=== PATIENT | female | born 1990 | race African-American/Black ===

== ENCOUNTER 2021-02-22 13:06 | Inpatient (IN) | payer OTHER ==
[~2021-02-22] VITALS: Ht 152.4 cm; Wt 92.5 kg
[~2021-02-22 13:06] MED LIST: IRON325 PO; KEFLEX500 M1 PO; LOPERAMIDE 2 MG2 M1 PO; TRINATE TABLET1 TAB PO
[2021-02-22 13:47] VITALS: BP 129/66
[2021-02-22 14:18] LABS: URINE BILIRUBIN NEGATIVE (Negative); URINE BLOOD NEGATIVE (Negative); URINE CLARITY CLEAR; URINE COLOR YELLOW; URINE GLUCOSE-RANDOM* NEGATIVE (Negative); URINE KETONES NEGATIVE (Negative); URINE LEUKOCYTES-REFLEX NEGATIVE (Negative); URINE NITRITE-REFLEX NEGATIVE (Negative); URINE PROTEIN (DIPSTICK) NEGATIVE (Negative); URINE UROBILINOGEN 0.2 E.U./dl (0.2-1.0)
[2021-02-22 15:19] LABS: HEMATOCRIT 27.7 % (37.0-47.0); HEMOGLOBIN 8.4 gm/dL (12.0-15.0); MCH 20.6 pg (26.0-34.0); MCHC 30.3 g/dL (28.0-37.0); RBC 4.07 mil/uL (4.20-5.00); RDW 17.6 % (10.5-14.5); WBC 8.2 thou/uL (4.0-11.0)
[2021-02-22 15:57] LABS: ALBUMIN 3.7 g/dL (3.4-5.0); CALCIUM 8.7 mg/dL (8.5-10.1); CREATININE 0.6 mg/dL (0.6-1.0); TOTAL BILIRUBIN 0.7 mg/dL (0.2-1.0); TOTAL PROTEIN 8.1 g/dL (6.4-8.2)
[2021-02-22 18:39] VITALS: BP 104/68
--- NOTE | 2021-02-23 04:04 | NUR ---
RECEIVED CARE OF THIS PATIENT AT 1900. PATIENT ARRIVED FROM ED AT 1840 VIA CART ACCOMPANIED BY ED PERSONEL. PATIENT ALERT AND ORIENTED X4. UP AD JAMEL. DENIES PAIN AND N/V. IV IN LAC PATENT WITH FLUIDS INFUSING.
[2021-02-23 06:46] LABS: HEMATOCRIT 24.3 % (37.0-47.0); HEMOGLOBIN 7.2 gm/dL (12.0-15.0); MCH 20.5 pg (26.0-34.0); MCHC 29.7 g/dL (28.0-37.0); MCV 68.9 fL (80.0-100.0); PLATELET COUNT 209 thou/uL (150-400); RBC 3.53 mil/uL (4.20-5.00); RDW 17.8 % (10.5-14.5); WBC 4.4 thou/uL (4.0-11.0)
[2021-02-23 07:15] LABS: CALCIUM 7.7 mg/dL (8.5-10.1); CREATININE 0.6 mg/dL (0.6-1.0); POTASSIUM 3.2 mmol/L (3.5-5.1)
[2021-02-23 07:16] LABS: MAGNESIUM 1.9 mg/dL (1.8-2.4)
[2021-02-23 07:25] VITALS: BP 90/51
[2021-02-23 08:36] LABS: ABSOLUTE NEUTROPHILS 3.5 thou/uL (1.4-8.2)
[2021-02-23 08:37] LABS: ANISOCYTOSIS 1+; MICROCYTES 2+
[2021-02-23 08:38] LABS: HYPOCHROMASIA 3+; PLATELET ESTIMATE NORMAL; POIKILOCYTOSIS 1+; POLYCHROMASIA 1+
[2021-02-23 09:00] VITALS: BP 103/58
[2021-02-23 09:01] LABS: FOLIC ACID 10.2 ng/mL (8.6-58.9)
[2021-02-23 09:13] LABS: % SATURATION 6 % (20-39); IRON 24 ug/dL (50-170); TIBC 384 ug/dL (250-450)
--- NOTE | 2021-02-23 09:59 | NUR ---
ASSUMED PT CARE THIS AM. PT IS ALERT & ORIENTED X4. PT HAS IV SITE ON RFA RUNNING NS @150ML/HR. PT IS ON ROOM AIR. INFORMED HOSPITALIST PT C/O OF CHEST PAIN BUT NOT RADIATING AND NO SOB. PLACED EKG AND INFORMED TELE IS NSR AND RECHECK VS. ORDERED EKG AND TROPONIN PER DR PETERSEN. GIVEN GI COCKTAILS THIS AM PER DR HAGER. WILL CONTINUE TO MONITOR PT. FOLLOW POC.
--- NOTE | 2021-02-23 12:19 | EKG ---
[address] [address] ELECTROCARDIOGRAM REPORT Name: SKINNY ROSENTHAL Room #: 434-P [facility] IN M.R.#: [id number] Admission: 02/22/21 Attend Phys: Bakari Kent MD Discharge: Date of : 86 Report #: [id number] [facility] Test Date: 2021-02-23 Test Time: 09:31:34 Pat Name: SKINNY ROSENTHAL Department: Room: 434 P Gender: F Quantitative Research Analyst: COLETTE : 1990 Requested By: Bakari Kent Order Number: [id number] : Domenico Mayers Measurements Intervals Mcleod Rate: 83 P: 56 ME: 168 QRS: 6 QRSD: 104 T: 30 QT: 376 QTc: 442 Interpretive Statements Sinus rhythm Borderline T abnormalities, anterior leads No previous ECG available for comparison Electronically Signed On 02-23-2021 12:19:10 [employer] WORK[employer] by Domenico Mayers [email or web address] <ELECTRONICALLY SIGNED> By: Domenico Mayers MD, [facility] 02/23/21 1219 0931 0 Domenico Mayers MD, FACC /EPI
[2021-02-23 15:27] VITALS: BP 95/63
[2021-02-23 19:25] VITALS: BP 111/65
--- NOTE | 2021-02-23 23:01 | NUR ---
ASSUMED PT CARE AT 1900.PT WAS OBSERVED LYING ON HER BED WATCHING TV AT SHIFT CHANGE.PT DENIED PAIN/N/V.PT REQUESTED FOR HER DIET TO BE ADVANCED,RUBBER TURNER ON DUTY NOTIFIED ,ORDER NOTED AND CARRIED.PT WAS ABLE TO EAT A SANDWICH AND KEPT IT DOWN WITHOUT C/O PAIN.PT RESTING QUIETLY ON HER BED.PT BREATHING NORMAL AND NON LABORED.CALL LIGHT WITHIN REACH.
[2021-02-24 08:09] VITALS: BP 109/60
[2021-02-24 09:10] LABS: ABSOLUTE NEUTROPHILS 1.5 thou/uL (1.4-8.2); BASOPHILS 0.5 % (0.0-2.0); EOSINOPHILS 3.6 % (0.0-3.0); HEMATOCRIT 23.6 % (37.0-47.0); HEMOGLOBIN 7.2 gm/dL (12.0-15.0); LYMPHOCYTES 38.4 % (24.0-44.0); MCH 21.3 pg (26.0-34.0); MCHC 30.5 g/dL (28.0-37.0); MCV 69.7 fL (80.0-100.0); MONOCYTES 11.8 % (1.0-8.0); PLATELET COUNT 213 thou/uL (150-400); POLYS 45.7 % (36.0-66.0); RBC 3.38 mil/uL (4.20-5.00); RDW 18.4 % (10.5-14.5); WBC 3.3 thou/uL (4.0-11.0)
[2021-02-24 09:17] LABS: CALCIUM 7.7 mg/dL (8.5-10.1); CREATININE 0.6 mg/dL (0.6-1.0); POTASSIUM 3.2 mmol/L (3.5-5.1)
--- NOTE | 2021-02-24 11:15 | NUR ---
Pt triggered for high BMI 40, class III obesity. Pt admitted with ileus, abd pain, nausea. Pt diet upgraded from clear liquids to regular last evening, tolerates regular diet with good intakes and symtpoms reolved. No c/o N/V, abd pain. BM 02/23. Pt reports no weight changes or changes in appetite [employer]ER and declines need for education r/t weight loss strategies. Will likely d/c today or tomorrow. Presents low nutrition risk.
[2021-02-24 12:57] VITALS: BP 109/60
== END 2021-02-24 13:13 | disposition home or self-care (01) | DRG 392 ==
LOC: ER 13:06 → 4S 17:16 → EROBS 17:16 → 4S 18:33
PROVIDERS: Nurse Practitioner; Student in an Organized Health Care Education/Training Program; ADMIT Hospitalist; ATTEND Hospitalist
DX: K52.9 Noninfective gastroenteritis and colitis, unspecified (principal); K56.7 Ileus, unspecified; D64.9 Anemia, unspecified; Z20.822 Contact with and (suspected) exposure to COVID-19
CPT/HCPCS: 10195